=== PATIENT | male | born 1985 | race Caucasian/White ===

== ENCOUNTER 2016-12-11 10:07 | Emergency (ER) | payer SELFPAY ==
--- NOTE | 2016-12-11 10:52 | ED Physician Documentation ---
Upper Respiratory Symptoms - HISTORIAN Historian: patient - HPI Stated Complaint: cough Chief Complaint: Cough/ Upper Respiratory Onset: hours (5) Duration: constant Severity: mild Associated Symptoms: denies: fever, chills Worsened by Deep Breath: No Further Comments: yes (31 yo male presents with c/o cough that started today. No reported fevers. No chest pain. Took 1 Mucinex DM with no relief. with same c/o.) - ROS CONST/EYES: denies: weakness - PAST HX Lung Disease: none Allergies/Adverse Reactions: Allergies Allergy/AdvReac Type Severity Reaction Status Date / Time Penicillins Allergy Intermediate Hives Verified 11/14/16 02:14 Home Medications: Ambulatory Orders Medication Instructions Recorded Azithromycin [Zithromax] 250 mg PO QD #4 tablet 10/18/16 - SOCIAL HX Smoking History: greater than 1 pack/day Alcohol Use: none Drug Use: none - FAMILY HX Family History: none - VITAL SIGNS Vital Signs: Vital Signs Temp Pulse Resp BP Pulse Ox 110/60 11/14/16 02:48 - REVIEWED ASSESSMENTS Nursing Assessment Reviewed: Yes Vitals Reviewed: Yes ED Results Lab/Radiology - Radiology Radiology Impressions: CXR: no acute infiltrative process appreciated - Orders Orders: ED Orders Category Date Time Status CHEST P.A.&LAT 2 VIEWS [RAD] Stat Exams 12/11/16 Ordered Upper Respiratory Symptoms - EXAM General Appearance: no acute distress, alert EENT: eyes nml inspection, nml ENT inspection Neck: normal inspection Respiratory: no resp. distress, breath sounds nml, no pain on inspiration Abdomen: non-tender CVS: reg rate & rhythm, heart sounds normal Skin: color nml, no rash Extremities: non-tender Neuro/Psych: oriented x3 Discharge Clincal Impression: Viral URI with cough Additional Instructions: Use Rx cough syrup as prescribed Continue to use OTC decongestants as needed Follow up with PCP in 1-2 weeks if no better Home Medications: Ambulatory Orders Azithromycin [Zithromax] 250 mg PO QD #4 tablet 10/18/16 Condition: Good Disposition: 01 HOME, SELF-CARE Decision to Admit: NO Decision Time: 11:58
[2016-12-11 14:44] VITALS: BP 118/81
--- NOTE | 2016-12-11 15:49 | Diagnostic Imaging Report ---
[facility] [id number] [facility].[address] [id number] Report Submission Date: Dec 11, 2016 11:53:06 AM DOCUMENT PREPARER MICROFILMING Patient Study Name: MINA ALSTON Date: Dec 11, 2016 11:29:58 AM DOCUMENT PREPARER MICROFILMING Modality Type: CR Gender: M Description: CHEST : 89 Institution: [facility] Physician: STEPHANIE PEGUERO PA and lateral chest CLINICAL HISTORY: Cough for for several days. Technique PA and lateral upright FINDINGS: The lung avila are clear. The lung avila are hyperinflated. The heart mediastinal structures are unremarkable. There is no pleural effusion. The bony thorax is unremarkable. IMPRESSION: Hyperinflation with no acute infiltrate Electronically signed on Dec 11, 2016 11:53:06 AM DOCUMENT PREPARER MICROFILMING by: Segundo URIBE
== END 2016-12-11 12:00 | disposition home or self-care (01) ==
LOC: ED 10:07
DX: J06.9 Acute upper respiratory infection, unspecified (principal); R05 Cough
CPT/HCPCS: 71020; 99282

== ENCOUNTER 2017-05-02 21:35 | Emergency (ER) | payer SELFPAY ==
--- NOTE | 2017-05-02 22:00 | ED Physician Documentation ---
Sore Throat/Dental Pain - HISTORIAN Historian: patient - HPI Chief Complaint: Dental Pain Additional Information: had a wisdom tooth pulled (L lower) 2 months ago, developed dry socket after, but has had cont problems, pain radiating thru his ear daily intermittantly since. allergy to PCN. Has not been on antibiotics for this. no fever,no drainage. Onset: days ago Context: Possible Infection Associated Symptoms: L ear pain. denies: fever, chills, runny nose, congestion Worsened By: nothing. denies: heat, cold Further Comments: no - ROS CONST: no problems CVS/RESP: none GI/: denies: nausea, vomiting MS/SKIN/LYMPH: denies: muscle aches NEURO/PSYCH: headache - PAST HX Past History: dental surgery Other History: none Immunizations: UTD Allergies/Adverse Reactions: Allergies Allergy/AdvReac Type Severity Reaction Status Date / Time Penicillins Allergy Intermediate Hives Verified 11/14/16 02:14 diphenhydramine HCl Allergy Verified 12/11/16 14:44 [From Benadryl] Home Medications: Ambulatory Orders Medication Instructions Recorded NK [NK] 12/11/16 - SOCIAL HX Smoking History: cigarettes Alcohol Use: occasionally Drug Use: none - FAMILY HX Family History: No - VITAL SIGNS Vital Signs: Vital Signs Temp Pulse Resp BP Pulse Ox 118/81 12/11/16 14:33 - REVIEWED ASSESSMENTS Nursing Assessment Reviewed: Yes Vitals Reviewed: Yes Dental Pain Physical Exam - EXAM General Appearance: no acute distress, alert Head/Neck: head nml inspection, no lymphadenopathy, other (mild erythema L lower gingiva, no obvious abscess). No: mandibular swelling (R), mandibular swelling (L), maxillary swelling (R), maxillary swelling (L), facial erythema, cervical lymphadenopathy Eyes: eyes nml inspection Mouth/Throat: lips nml, pharynx nml, voice nml, no drooling, no air way problems , no thrush, dental tenderness, gum swelling around teeth. No: gums nml, widespread dental decay Ear/Nose: nml inspection Respiratory: no resp. distress Abdomen: soft Extremities: non-tender Skin: warm/dry Neuro/Psych: No: weakness Discharge Clincal Impression: Acute nonsuppurative periodontitis, Chronic dental pain Referrals: Primary Doctor,No [Primary Care Provider] - 2 Days Home Medications: Ambulatory Orders NK [NK] 12/11/16 Condition: Good Disposition: HOME, SELF-CARE Decision to Admit: NO Date of Decison to Admit: 05/02/17 Decision Time: 22:00
[2017-05-02 22:05] VITALS: BP 105/67
[2017-05-02] MEDS: CLINDAMYCIN PHOSPHATE 300 MG/2 ML VIAL IM ONE (22:05)
== END 2017-05-02 22:09 | disposition home or self-care (01) ==
LOC: ED 21:35
DX: K05.20 Aggressive periodontitis, unspecified (principal)
CPT/HCPCS: 99283; J3490

== ENCOUNTER 2017-07-08 02:12 | Emergency (ER) | payer SELFPAY ==
[2017-07-08 02:29] VITALS: BP 118/73
[2017-07-08] MEDS ORDERED: AZITHROMYCIN 250 MG TABLET PO ONE (02:36)
[2017-07-08] MEDS: AZITHROMYCIN 250 MG TABLET PO ONE (02:40)
--- NOTE | 2017-07-08 02:51 | ED Physician Documentation ---
Upper Respiratory Symptoms - HISTORIAN Historian: patient, spouse - HPI Stated Complaint: Cough/Congestion Chief Complaint: Cough/ Upper Respiratory Additional Information: cough congestion fatigue fever prod cough weakness past 10-14 days after working at [employer]-very wet damp enviornment Onset: days ago (14) Duration: constant, intermittent episodes (cough) Context: denies: recent foreign travel Severity: moderate Associated Symptoms: fever, chills, sweating, earache, runny nose, sinus pain, sinus drainage, sore throat, chest pain, productive cough Worsened by Deep Breath: Yes - ROS CONST/EYES: weakness CVS/RESP: shortness of breath LYMPH: denies: leg swelling, rash, swollen glands GI/: denies: abdominal pain NEURO/PSYCH: denies: fainting MS/SKIN: denies: joint pain - PAST HX Lung Disease: none PE Risk Factors: none Surgeries/Procedures: none Allergies/Adverse Reactions: Allergies Allergy/AdvReac Type Severity Reaction Status Date / Time Penicillins Allergy Intermediate Hives Verified 07/08/17 02:30 Home Medications: Ambulatory Orders Medication Instructions Recorded Azithromycin 500 mg PO D #5 tablet 07/08/17 - SOCIAL HX Smoking History: cigarettes Alcohol Use: none Drug Use: none - FAMILY HX Family History: no significant history - VITAL SIGNS Vital Signs: Vital Signs Temp Pulse Resp BP Pulse Ox 100.6 F H 90 18 118/73 99 07/08/17 02:15 07/08/17 02:15 07/08/17 02:15 07/08/17 02:15 07/08/17 02:15 - REVIEWED ASSESSMENTS Nursing Assessment Reviewed: Yes Vitals Reviewed: Yes ED Results Lab/Radiology - Orders Orders: ED Orders Category Date Time Status Azithromycin [Zithromax] Med 07/08/17 02:36 Discontinued 500 mg PO .STK-MED ONE Azithromycin [Zithromax] Med 07/08/17 02:39 Discontinued 500 mg PO NOW ONE Upper Respiratory Symptoms - EXAM General Appearance: moderate distress EENT: eyes nml inspection, nml ENT inspection, lids & conjunct. nml, pain over sinuses, TM erythema, pharyngeal erythema Neck: normal inspection Respiratory: speaks full sentences, decreased air movement, wheezes, rales, rhonchi, stridor. No: breath sounds nml, respiratory distress, respiratory failure, prolonged expirations Abdomen: non-tender. No: guarding, rebound CVS: reg rate & rhythm, heart sounds normal Skin: color nml, no rash, warm,dry. No: cyanosis, diaphoresis, pallor Extremities: non-tender, normal range of motion Neuro/Psych: oriented x3, neuro intact, mood/affect nml Discharge Clincal Impression: acute bronchitis, nicotine abuse Prescriptions: Azithromycin 500 mg PO D #5 tablet Referrals: Primary Doctor,No [Primary Care Provider] - 2 Days Home Medications: Ambulatory Orders Azithromycin 500 mg PO D #5 tablet 07/08/17 Condition: Good Disposition: 01 HOME, SELF-CARE Decision to Admit: NO Decision Time: 02:54
== END 2017-07-08 02:45 | disposition home or self-care (01) ==
LOC: ED 02:12
DX: J20.9 Acute bronchitis, unspecified (principal); Z72.0 Tobacco use
CPT/HCPCS: 99283